=== PATIENT | male | born 1990 | race Caucasian/White ===

== ENCOUNTER 2020-02-11 16:42 | Emergency (ER) | payer OTHER | END 2020-02-11 20:58 | disposition other institution (70) | LOC: ED 16:42 | DX: Z02.89 Encounter for other administrative examinations (principal) ==

== ENCOUNTER 2020-02-11 16:42 | Emergency (ER) | payer OTHER ==
[~2020-02-11] VITALS: Ht 167.6 cm; Wt 59.0 kg
[2020-02-11 17:25] VITALS: Ht 167.6 cm; Wt 59.0 kg
[2020-02-11 17:53] LABS: BASOPHIL % 1.9 % (0-2); PLATELET COUNT 398 x10^3mcL (130-400); RED CELL DISTRIBUTION WIDTH 13.3 % (11.5-14.5)
[2020-02-11 18:09] LABS: ALBUMIN 3.8 g/dL (3.4-5.0); ALKALINE PHOSPHATASE 117 U/L (46-116); ALT/SGPT 27 U/L (16-63); BILIRUBIN TOTAL 0.2 mg/dL (0.20-1.00); CALCIUM 8.1 mg/dL (8.5-10.1); CARBON DIOXIDE 24.6 mmol/L (21-32); CHLORIDE SERUM 98 mmol/L (98-107); CREATININE SERUM 0.9 mg/dL (0.7-1.3); GFR1 > 60 mL/min; POTASSIUM SERUM 4.2 mmol/L (3.5-5.1); SODIUM SERUM 135 mmol/L (136-145); TOTAL PROTEIN, SERUM 7.2 g/dL (6.4-8.2)
[2020-02-11 18:13] LABS: GLUCOSE SERUM 609 mg/dL (74-106)
[2020-02-11 18:18] LABS: AST/SGOT 24 U/L (15-37)
[2020-02-11 19:38] LABS: UA SPECIFIC GRAVITY <=1.005 (1.005-1.035); microscopic required? YES; urine erythrocyte TRACE (NEGATIVE)
[2020-02-11 19:56] LABS: AMPHETAMINE QUAL UR NONE DETECTED (See below)
[2020-02-11 20:58] VITALS: BP 99/52
== END 2020-02-11 20:58 | disposition other institution (70) ==
LOC: ED 16:42
PROVIDERS: Emergency Medicine
DX: E11.9 Type 2 diabetes mellitus without complications (principal)
CPT/HCPCS: 82962; G0480; J1815; J7030

== ENCOUNTER 2020-02-13 21:10 | Emergency (ER) | payer OTHER ==
[~2020-02-13] VITALS: Ht 170.2 cm; Wt 61.2 kg
[2020-02-13 23:12] LABS: BASOPHIL % 0.8 % (0-2); PLATELET COUNT 412 x10^3mcL (130-400); RED CELL DISTRIBUTION WIDTH 13.1 % (11.5-14.5)
[2020-02-13 23:21] LABS: CALCIUM 8.2 mg/dL (8.5-10.1); CARBON DIOXIDE 25.6 mmol/L (21-32); CHLORIDE SERUM 96 mmol/L (98-107); CREATININE SERUM 0.9 mg/dL (0.7-1.3); GFR1 > 60 mL/min; GLUCOSE SERUM 430 mg/dL (74-106); POTASSIUM SERUM 3.6 mmol/L (3.5-5.1); SODIUM SERUM 134 mmol/L (136-145)
[2020-02-13 23:25] LABS: ALBUMIN 3.6 g/dL (3.4-5.0); ALKALINE PHOSPHATASE 100 U/L (46-116); ALT/SGPT 25 U/L (16-63); AST/SGOT 19 U/L (15-37); BILIRUBIN TOTAL 0.2 mg/dL (0.20-1.00)
[2020-02-14 01:10] VITALS: BP 93/52
== END 2020-02-14 01:11 | disposition home or self-care (01) ==
LOC: ED 21:10
PROVIDERS: Student in an Organized Health Care Education/Training Program
DX: F10.129 Alcohol abuse with intoxication, unspecified (principal); E11.65 Type 2 diabetes mellitus with hyperglycemia
CPT/HCPCS: 82962; J1815; J7030